=== PATIENT | female | born 1985 | race Caucasian/White ===

== ENCOUNTER 2017-03-12 08:41 | Emergency (ER) | payer SELFPAY ==
[2017-03-12 08:58] VITALS: TEMP 98.5; BMI 25.8
--- NOTE | 2017-03-12 09:07 | PDOC ---
History of Present Illness - General History Source: Patient Exam Limitations: No Limitations - History of Present Illness Initial Comments: CHIEF COMPLAINT: 31 y/o afebrile female with PMH seizures (on Lamictal 200mg BID) here after having a seizure this morning. HISTORY OF PRESENT ILLNESS: The patient states she went into the shower this morning and the next thing she remembers she was on her bed "feeling weird". She does not recall how she got from the shower to the bed and when she realized where she was she found a painful bump on the back of her head so she is assuming she had a seizure. She states she was feeling "weird" yesterday. She states this morning, prior to her shower she did take her seizure medication , but when she woke up on the bed she accidentally took another dose. She denies STEVENSON, f/c, neck pain, dizziness, bleeding from ears or nose, n/v/d, CP, SOB , abdominal pain, back pain, hematuria, dysuria, numbness/tingling, bowel/ bladder incontinence, tongue biting. Her last seizure was about 1.5 years ago. Neurologist is at [facility]. Vital signs on arrival are notable for pulse of 108. REVIEW OF SYSTEMS: GENERAL/CONSTITUTIONAL: No fever/chills. No weakness. No weight change. HEAD, EYES, EARS, NOSE AND THROAT: No change in vision. No ear pain or discharge. No sore throat. CARDIOVASCULAR: No chest pain or shortness of breath. RESPIRATORY: No cough, wheezing, or hemoptysis. GASTROINTESTINAL: No abd pain, nausea, vomiting, diarrhea. GENITOURINARY: No dysuria, frequency, or change in urination. MUSCULOSKELETAL: No joint or muscle swelling or pain. No neck or back pain. SKIN: No rash or easy bruising. NEUROLOGIC: +painful bump to back of head. No headache, vertigo, loss of consciousness, or loss of sensation. PHYSICAL EXAM: GENERAL: The patient is awake, alert, and fully oriented, in no acute distress. She is well appearing, ambulatory, in NAD or obvious discomfort. HEAD: 2cm hematoma to lower left occipital region. NECK: No midline cervical spine TTP or step offs. ENT: Pupils equal, round and reactive to light, extraocular movements intact, sclera anicteric, conjunctiva clear. No nystagmus. No bleeding from ears or nares. LUNGS: Clear to auscultation bilaterally. Normal excursion. No respiratory distress or use of accessory muscles. CV: RRR, S1/S2, no MRG. Cap refill < 2 sec. ABDOMEN: Soft, non-distended, non-tender even to deep palpation, no hepatomegaly or splenomegaly, no masses. EXTREMITIES: Normal range of motion, no edema. NEUROLOGICAL: Normal speech, normal gait. CN II-XII grossly intact. PSYCH: Normal mood, normal affect. SKIN: Warm, dry, normal turgor, no rashes or lesions noted. <Gabi Dahl - Last Filed: 03/12/17 11:04> <Briana Gatica - Last Filed: 03/12/17 18:58> - General Chief Complaint: Seizure Stated Complaint: SEIZURE/ BUMP ON HEAD, SCRATCH Time Seen by Provider: 03/12/17 09:02 Past History - Past Medical History Seizures: Yes (epilepsy) - Immunization History Td Vaccination: Yes Immunization Up to Date: Yes - Psycho/Social/Smoking Cessation Hx Anxiety: No Suicidal Ideation: No Smoking Status: Yes Smoking History: Current every day smoker Years of Tobacco Use: 10 Number of Cigarettes Smoked Daily: 10 Cigars Per Day: 0 Information on smoking cessation initiated: No 'Breaking Loose' booklet given: 03/17/15 Hx Alcohol Use: Yes Drug/Substance Use Hx: No Substance Use Type: None <Gabi Dahl - Last Filed: 03/12/17 11:04> <Briana Gatica - Last Filed: 03/12/17 18:58> - Past Medical History Allergies/Adverse Reactions: Allergies Allergy/AdvReac Type Severity Reaction Status Date / Time No Known Allergies Allergy Verified 03/12/17 08:49 Home Medications: Ambulatory Orders Lamotrigine [LaMICtal] 200 mg PO BID 01/26/13 *Physical Exam - Vital Signs Last Vital Signs Temp Pulse Resp BP Pulse Ox 98.5 F 108 H 20 119/55 99 03/12/17 08:50 03/12/17 08:50 03/12/17 08:50 03/12/17 08:50 03/12/17 08:50 <Gabi Dahl - Last Filed: 03/12/17 11:04> - Vital Signs Last Vital Signs Temp Pulse Resp BP Pulse Ox 98.5 F 87 18 120/79 100 03/12/17 08:50 03/12/17 11:04 03/12/17 11:04 03/12/17 11:04 03/12/17 11:04 <Briana Gatica - Last Filed: 03/12/17 18:58> Heart Score/ECG Review - ECG Intrepretation Comment:: Twelve-lead EKG was performed and reviewed by Dr. Gatica. There is normal sinus rhythm with a normal rate. The axis is normal. The intervals are normal. There are no ST or T wave abnormalities. Impression: Normal twelve-lead EKG <Gabi Dahl - Last Filed: 03/12/17 11:04> ED Treatment Course - LABORATORY CBC & Chemistry Diagram: 03/12/17 09:38 03/12/17 09:38 <Gabi Dahl - Last Filed: 03/12/17 11:04> - LABORATORY CBC & Chemistry Diagram: 03/12/17 09:38 03/12/17 09:38 - ADDITIONAL ORDERS Additional order review: Laboratory Results 03/12/17 03/12/17 03/12/17 09:38 09:15 09:15 Sodium 136 Potassium 4.1 Chloride 103 Carbon Dioxide 27 Anion Gap 6 L BUN 7 D Creatinine 0.7 Creat Clearance w eGFR > 60 Random Glucose 85 Calcium 9.3 Magnesium 1.9 Total Bilirubin 0.4 D AST 42 H D ALT 51 Alkaline Phosphatase 90 Total Protein 7.0 Albumin 4.0 Urine Color Yellow Urine Appearance Clear Urine pH 5.0 Ur Specific [place] >= 1.030 H Urine Protein 3+ H Urine Glucose (UA) Negative Urine Ketones Trace H Urine Blood 3+ H Urine Nitrite Negative Urine Bilirubin Negative Urine Urobilinogen Negative Ur Leukocyte Esterase Negative Urine RBC 10 Urine WBC 11 Ur Epithelial Cells Rare Granular Casts 10 Urine Mucus Rare Urine HCG, Qual Negative Opiates Screen Negative Methadone Screen Negative Barbiturate Screen Negative Phencyclidine Screen Negative Ur Amphetamines Screen Negative MDMA (Ecstasy) Screen Negative Benzodiazepines Screen Negative Cocaine Screen Negative U Marijuana (THC) Screen Negative 03/12/17 09:38 RBC 3.96 MCV 102.5 H MCHC 34.8 RDW 12.1 MPV 7.5 Neutrophils % 71.3 D Lymphocytes % 15.3 D Monocytes % 10.0 Eosinophils % 2.6 Basophils % 0.8 <Briana Gatica - Last Filed: 03/12/17 18:58> Medical Decision Making - Medical Decision Making A/P: 31 y/o afebrile female with PMH seizures here after having a suspected seizure. Plan is as follows: 1. EKG 2. Labs 3. UA/tox/hcg 4. Head CT Head CT IMPRESSION: No evidence of acute intracranial pathology. Labs unremarkable. UA with 3+ blood - patient currently menstruating. Gave the patient all of her results. Will call her Neurologist for medication instructions. Spoke with her Neurologist, Dr. Negin Fernandez ([facility]), who states patient should withhold Lamictal dose tonight and restart again tomorrow morning. Also wants the patient to call the office to make a follow up appointment. Gave the patient all of the instructions and suggested she return to the ER with any worsening or concerning symptoms. The patient verbalizes understanding of all instructions, has no further questions and is awaiting discharge. <Gabi Dahl - Last Filed: 03/12/17 11:04> *DC/Admit/Observation/Transfer <Gabi Dahl - Last Filed: 03/12/17 11:04> - Attestations Physician Attestion: I reviewed the case with the mid-level practitioner and agree with the mid- level practitioner's assessment, diagnosis and disposition. <Briana Gatica - Last Filed: 03/12/17 18:58> Diagnosis at time of Disposition: Seizure - Discharge Dispostion Disposition: HOME Condition at time of disposition: Improved - Patient Instructions Printed Discharge Instructions: DI for Seizure Disorder -- Adult Additional Instructions: Discharge Instructions: -The cat Scan of your head and all of your labs were normal -Do not take your Lamictal dose tonight -Restart your Lamictal tomorrow morning and take as prescribed -Call Dr. Fernandez's office today to schedule a follow up appointment -Return to the ER with any worsening or concerning symptoms. - Post Discharge Activity Work/School Note: Back to Work
[2017-03-12 09:57] LABS: URINE MARIJUANA THC NEGATIVE ng/ml (CUTOFF=50)
[2017-03-12 10:05] LABS: BASOPHIL 0.8 % (0-2.0); EOSINOPHIL 2.6 % (0-4.5); MCH 35.7 pg (25.7-33.7); MCHC 34.8 g/dl (32.0-36.0); MEAN CELL VOLUME 102.5 fl (80-96); MEAN PLT VOLUME 7.5 fl (7.5-11.1); NEUTROPHILS 71.3 % (42.8-82.8); PLATELET COUNT 309 K/MM3 (134-434); RDW 12.1 % (11.6-15.6); WHITE BLOOD COUNT 8.6 K/mm3 (4.0-10.0)
[2017-03-12 10:08] LABS: URINE APPEARANCE CLEAR; URINE BILIRUBIN NEGATIVE (NEGATIVE); URINE BLOOD 3+ (NEGATIVE); URINE COLOR YELLOW; URINE GLUCOSE (UA) NEGATIVE (NEGATIVE); URINE KETONE TRACE (NEGATIVE); URINE LEUK ESTERASE NEGATIVE (NEGATIVE); URINE NITRITE NEGATIVE (NEGATIVE); URINE UROBILINOGEN NEGATIVE mg/dL (0.2-1.0)
--- NOTE | 2017-03-12 10:10 | EKG ---
Test Reason : Blood Pressure : / mmHG Vent. Rate : 092 BPM Atrial Rate : 092 BPM P-R Int : 160 ms QRS Dur : 086 ms QT Int : 376 ms P-R-T Axes : 008 068 043 degrees QTc Int : 464 ms NORMAL SINUS RHYTHM NORMAL ECG Confirmed by BHAVANA MICHAEL MD ([id number]) on 03/12/2017 10:09:32 AM Referred By: Confirmed By:BHAVANA MICHAEL MD
[2017-03-12 10:16] LABS: URINE PROTEIN 3+ (NEGATIVE)
[2017-03-12 10:57] LABS: GRANULAR CASTS 10 /lpf; URINE MUCUS RARE; URINE RBC 10 /hpf (0-3); URINE WBC 11 /hpf (3-5)
[2017-03-12 10:58] LABS: ANION GAP 6 (8-16); CALCIUM 9.3 mg/dL (8.5-10.1); CO2 27 mmol/L (21-32); CREATININE 0.7 mg/dL (0.55-1.02); GLUCOSE,RANDOM 85 mg/dL (74-106); MAGNESIUM 1.9 mg/dL (1.8-2.4); SGOT/AST 42 U/L (15-37); SGPT/ALT 51 U/L (12-78)
[2017-03-12 11:00] LABS: ALK PHOS 90 U/L (45-117); BILIRUBIN,TOTAL 0.4 mg/dL (0.2-1.0)
[2017-03-12 11:05] VITALS: BP 120/79; PULSE 87
== END 2017-03-12 12:04 | disposition home or self-care (01) ==
LOC: JER 08:41
DX: G40.909 Epilepsy, unspecified, not intractable, without status epilepticus (principal)
CPT/HCPCS: 36415; 70450-TC; 80053; 80307; 81003; 81015; 83735; 84703; 85025; 93005; 93010; 99284-25